=== PATIENT | female | born 1975 | race Caucasian/White ===

== ENCOUNTER 2023-11-05 15:42 | Observation (INO) | payer OTHER ==
[~2023-11-05] VITALS: Ht 170.2 cm; Wt 75.4 kg
[2023-11-05 16:52] LABS: BASOPHILS ABSOLUTE AUTO 0.04 K/mm3 (0.00-0.23); BASOPHILS PERCENT AUTO 1 % (0-2); EOSINOPHILS ABSOLUTE AUTO 0.38 K/mm3 (0.00-0.68); EOSINOPHILS PERCENT AUTO 6 % (0-6); Hematocrit 39.5 % (33.0-51.0); Hemoglobin 12.4 g/dL (11.5-16.0); IMMATURE GRAN ABSOLUTE AUTO 0.01 K/mm3 (0.00-0.10); IMMATURE GRAN PERCENT AUTO 0 % (0-1); LYMPHOCYTES ABSOLUTE AUTO 1.17 K/mm3 (0.84-5.20); LYMPHOCYTES PERCENT AUTO 20 % (21-46); MONOCYTES ABSOLUTE AUTO 0.46 K/mm3 (0.16-1.47); MONOCYTES PERCENT AUTO 8 % (4-13); Mean Corpuscular HGB 28.3 pg (26.0-34.0); Mean Corpuscular HGB Conc 31.4 g/dL (31.5-36.5); Mean Corpuscular Volume 90 fL (80-100); Mean Platelet Volume 8.7 fL (9.1-12.4); NEUTROPHILS ABSOLUTE AUTO 3.93 K/mm3 (1.96-9.15); NEUTROPHILS PERCENT AUTO 66 % (41-73); Platelet Count 248 K/mm3 (150-400); RDW Coefficient Variation 14.2 % (11.7-14.2); RDW Standard Deviation 47.2 fL (35.1-46.3); Red Blood Cell Count 4.38 M/mm3 (3.80-5.20); White Blood Cell Count 5.99 K/mm3 (4.00-11.30)
[2023-11-05 17:19] LABS: Albumin, Blood 3.5 g/dL (3.4-5.0); Bilirubin, Total 0.4 mg/dL (0.1-1.0); Bun/Creatinine Ratio 13.3 (12.0-20.0); Calcium, Blood 8.5 mg/dL (8.5-10.1); Creatinine, Blood 7.08 mg/dL (0.40-1.00); Globulin, Blood 3.6 g/dL (2.2-4.0); Potassium, Blood 5.3 mmol/L (3.5-5.5); Total Protein, Blood 7.1 g/dL (6.4-8.2)
[2023-11-05] MEDS ORDERED: ATOR10 PO (19:53)
[2023-11-05] MEDS ORDERED: ALBU2.5V5 INH (19:53)
[2023-11-05] MEDS ORDERED: CARV3.125 PO (19:54)
[2023-11-05] MEDS ORDERED: ASPI325 PO (19:54)
[2023-11-05] MEDS ORDERED: Amlodipine Bes2.5 MG PO (19:55)
[2023-11-05] MEDS ORDERED: METO5A PO (19:55)
[2023-11-05] MEDS ORDERED: ONDA4 PO (19:55)
[2023-11-05] MEDS ORDERED: ESCI5 PO (19:55)
[2023-11-05] MEDS ORDERED: TORS10 PO (19:56)
[2023-11-05] MEDS ORDERED: INSULIN AS100 UNIT/6 SQ (19:57)
[2023-11-05] MEDS ORDERED: LEVEMIR100 UNIT/1 SQ (20:02)
[2023-11-06] VITALS (20 sets, daily range): BP systolic 139–202; BP diastolic 64–98
[2023-11-06] MEDS ORDERED: AMLO5 PO (01:22)
[2023-11-06] MEDS ORDERED: ATOR40TA PO (01:23)
[2023-11-06] MEDS ORDERED: CARV25 PO (01:24)
[2023-11-06] MEDS ORDERED: ESCI20 PO (01:25)
[2023-11-06] MEDS ORDERED: LEVEMIR100 UNIT/1 SC (01:26)
[2023-11-06] MEDS ORDERED: METO10 PO (01:27)
[2023-11-06] MEDS ORDERED: SOAANZ20 M1 PO (01:28)
[2023-11-06] MEDS ORDERED: ONDA4 PO (01:29)
--- NOTE | 2023-11-06 04:03 | NUR ---
SHIFT SUMMARY/ADMISSION NOTE PATIENT ARRIVED TO UNIT FROM ED AT 00:30. ORIENTED TO UNIT, ROOM, AND CALL LIGHT USE. IS A/Ox4, PLEASANT AFFECT. 10y/old DAUGHTER AT BEDSIDE. PATIENT STATES SMALL CLUSTER OF RAISED RED BUMPS ON ABD AND UPPER BACK ARE ONLY PAINFUL WHEN SCRATCHING. DID NOT FIND ANY BED BUGS IN CLOTHING AT TIME OF ADMIT. NO ACUTE CHANGES NOTED OVERNIGHT. CALL LIGHT IN REACH.
[2023-11-06 05:11] LABS: Albumin, Blood 2.9 g/dL (3.4-5.0); Anion Gap 9 mmol/L (6-16); Blood Urea Nitrogen 97 mg/dL (8-24); Bun/Creatinine Ratio 13.4 (12.0-20.0); CO2, Blood 20 mmol/L (21-32); Calcium, Blood 8.2 mg/dL (8.5-10.1); Chloride, Blood 107 mmol/L (98-108); Creatinine, Blood 7.26 mg/dL (0.40-1.00); Glomerular Filtration Rate 6 (60-); Glucose, Blood 281 mg/dL (70-99); Phosphorus, Blood 7.6 mg/dL (2.5-4.9); Potassium, Blood 5.4 mmol/L (3.5-5.5); Sodium, Blood 136 mmol/L (136-145)
--- NOTE | 2023-11-06 19:36 | NUR ---
shift summary- PT HAD DIALYSIS THIS EVENING. PER MANAGEMENT D/T ISOLATION, PT IS UNABLE TO FEED HER GRAND-DAUGHTER WHO IS IN THE ROOM WITH HER, GUEST MEAL TRAY IS REQUESTED WITH ALL PT MEALS. CALLED DR COLBERT THE PT WAS C/O THE IV IN HER HAND HURTING, SHE HAS NO IV MEDICATION ORDERED, PT REQUESTED THAT THIS RN REMOVE THE IV. PER DR COLBERT, THIS PT CAN HAVE A NO IV ACCESS ORDER LONG DR VASQUEZ IS NOT GOING TO NEED IT FOR HER TREATMENT. CALLED DR VASQUEZ AND HE STATED HE HAS NO PLANS TO USE IV TREATMENT. NO IV ACCESS ORDER PLACED, PAINFUL IV WAS DC'D. REPORT GIVEN TO NIGHT RN. PT IS IN BED, CALL LIGHT IN REACH, C/O HEADACHE AFTER DIALYSIS, IT WAS TOO SOON FOR TYLENOL. PT WAS PROVIDED WITH A HEATING PAD FOR RIGHT SHOULDER PAIN. NO CURRENT S&S OF DISTRESS NOTED.
--- NOTE | 2023-11-06 22:55 | NUR ---
SHIFT SUMMARY PATIENT A/OX4, DENIES PAIN NOR DISCOMFORT AT TIME OF ASSESSMENT AT 19:50. PATIENT EXPRESSED CONCERN OVER HER SITUATION REGARDING APPOINTMENT IN [place] TO EXCHANGE UNDERWRITING CONSULTANT HER NEW TRAVEL TRAILER TOMORROW. STATED THAT WHEN THEY CALL HER THAT IT IS READY TO TAKE DELIVERY ON, SHE HAS ONLY A 1 HOUR WINDOW TO BE THERE TO PICK IT UP. PATIENT INFORMED THIS RN THAT SHE WILL BE LEAVING FIRST THING IN THE MORNING REGARDLESS OF IF PROVIDER AGREES TO DISCHARGE OR NOT. THIS RN ENCOURAGED PATIENT TO WAIT TILL WE CAN DISCUSS THIS WITH PROVIDER. WHILE THIS RN WAS BUSY ADMITTING ANOTHER PATIENT, THIS PATIENT APPEARS TO HAVE LEFT WITHOUT INFORMING ANY STAFF OF HER INTENT ON LEAVING TONIGHT INSTEAD OF WAITING TILL THE MORNING PATIENT HAD PREVIOUSLY STATED. FROZEN FOOD SELECTOR, RAMP ATTENDANT, AND METAL ROOM DENTAL TECHNICIAN PROVIDER AWARE. NO PERSONAL BELONGINGS FOUND IN ROOM.
[2023-11-07 09:43] LABS: HEPATITIS B SURFACE ANTIBODY <3.10 IU/L
[2023-11-07 11:06] LABS: HEPATITIS B SURFACE ANTIBODY <3.10 IU/L
[2023-11-07 11:12] LABS: HBV CORE ANTIBODIES,TOTAL Negative (Negative)
[2023-11-07 12:04] LABS: HBV QNT BY NAAT (IU/ML) Not Detected; HBV QNT BY NAAT (LOG IU/ML) Not Detected; HBV QNT BY NAAT INTERP Not Detected (Not Detected)
[2023-11-08 09:11] LABS: HEPATITIS B SURFACE ANTIBODY <3.10 IU/L
[2023-11-08 09:30] LABS: HEPATITIS B SURFACE ANTIGEN Negative (Negative)
[2023-11-08 11:43] LABS: HEPATITIS A ANTIBODY, IGM Negative (Negative); HEPATITIS B CORE ANTIBODY, IGM Negative (Negative); HEPATITIS B SURFACE ANTIGEN Negative (Negative); HEPATITIS C AB CIA INTERP Negative (Negative); HEPATITIS C ANTIBODY CIA INDEX 0.04 IV
== END 2023-11-06 22:25 | disposition left against medical advice (07) ==
LOC: ER 15:42 → MEDS 15:43
PROVIDERS: Internal Medicine Nephrology; Physician Assistant; Student in an Organized Health Care Education/Training Program; ADMIT Internal Medicine
DX: I13.2 Hypertensive heart and chronic kidney disease with heart failure and with stage 5 chronic kidney disease, or end stage renal disease (principal); E11.22 Type 2 diabetes mellitus with diabetic chronic kidney disease; N18.6 End stage renal disease; I50.9 Heart failure, unspecified; E87.1 Hypo-osmolality and hyponatremia; E87.5 Hyperkalemia; E87.20 Acidosis, unspecified; E83.39 Other disorders of phosphorus metabolism; E88.09 Other disorders of plasma-protein metabolism, not elsewhere classified; D64.9 Anemia, unspecified; I25.2 Old myocardial infarction; E11.319 Type 2 diabetes mellitus with unspecified diabetic retinopathy without macular edema; T14.8XXA Other injury of unspecified body region, initial encounter; W57.XXXA Bitten or stung by nonvenomous insect and other nonvenomous arthropods, initial encounter; I25.10 Atherosclerotic heart disease of native coronary artery without angina pectoris; F32.9 Major depressive disorder, single episode, unspecified; M25.511 Pain in right shoulder; F17.210 Nicotine dependence, cigarettes, uncomplicated; Z53.29 Procedure and treatment not carried out because of patient's decision for other reasons; Z88.5 Allergy status to narcotic agent; Z88.8 Allergy status to other drugs, medicaments and biological substances; Z79.4 Long term (current) use of insulin; Z79.82 Long term (current) use of aspirin; Z79.899 Other long term (current) drug therapy
CPT/HCPCS: 36415; 76770; 80053; 80069; 80074; 82947; 85025; 86704; 87340; 87517; 94760; 99284; A9270; G0378; J1815

== ENCOUNTER 2024-01-21 13:08 | Emergency (ER) | payer OTHER ==
[~2024-01-21] VITALS: Ht 167.6 cm; Wt 70.3 kg
[~2024-01-21 13:08] MED LIST: ALBU2.5V5 INH; AMLO5 PO; ASPI325 PO; ATOR10 PO; ATOR40TA PO; Amlodipine Bes2.5 MG PO; CARV25 PO; CARV3.125 PO; DICY20 PO; ESCI20 PO; ESCI5 PO; INSULIN AS100 UNIT/6 SQ; LEVEMIR100 UNIT/1 SC; LEVEMIR100 UNIT/1 SQ; METO10 PO; METO5A PO; ONDA4 PO; SOAANZ20 M1 PO; TORS10 PO
[2024-01-21 15:05] LABS: BASOPHILS ABSOLUTE AUTO 0.04 K/mm3 (0.00-0.23); BASOPHILS PERCENT AUTO 1 % (0-2); EOSINOPHILS ABSOLUTE AUTO 0.19 K/mm3 (0.00-0.68); EOSINOPHILS PERCENT AUTO 2 % (0-6); Hematocrit 36.1 % (33.0-51.0); Hemoglobin 12.6 g/dL (11.5-16.0); IMMATURE GRAN ABSOLUTE AUTO 0.02 K/mm3 (0.00-0.10); IMMATURE GRAN PERCENT AUTO 0 % (0-1); LYMPHOCYTES ABSOLUTE AUTO 1.65 K/mm3 (0.84-5.20); LYMPHOCYTES PERCENT AUTO 21 % (21-46); MONOCYTES ABSOLUTE AUTO 0.41 K/mm3 (0.16-1.47); MONOCYTES PERCENT AUTO 5 % (4-13); Mean Corpuscular HGB 29.8 pg (26.0-34.0); Mean Corpuscular HGB Conc 34.9 g/dL (31.5-36.5); Mean Corpuscular Volume 85 fL (80-100); Mean Platelet Volume 8.2 fL (9.1-12.4); NEUTROPHILS ABSOLUTE AUTO 5.52 K/mm3 (1.96-9.15); NEUTROPHILS PERCENT AUTO 71 % (41-73); Platelet Count 267 K/mm3 (150-400); RDW Coefficient Variation 15.2 % (11.7-14.2); RDW Standard Deviation 48.2 fL (35.1-46.3); Red Blood Cell Count 4.23 M/mm3 (3.80-5.20); White Blood Cell Count 7.83 K/mm3 (4.00-11.30)
[2024-01-21 15:28] LABS: Albumin, Blood 3.9 g/dL (3.4-5.0); Bilirubin, Total 0.7 mg/dL (0.1-1.0); Bun/Creatinine Ratio 9.1 (12.0-20.0); Calcium, Blood 9.7 mg/dL (8.5-10.1); Creatinine, Blood 6.92 mg/dL (0.40-1.00); Globulin, Blood 3.8 g/dL (2.2-4.0); Potassium, Blood 4.5 mmol/L (3.5-5.5); Total Protein, Blood 7.7 g/dL (6.4-8.2)
[2024-01-21 16:55] VITALS: BP 173/90
[2024-01-21] MEDS ORDERED: Norco 5-325 Ta1 EACH PO (16:55)
== END 2024-01-21 17:00 | disposition home or self-care (01) ==
LOC: ER 13:08
PROVIDERS: Physician Assistant
DX: K80.50 Calculus of bile duct without cholangitis or cholecystitis without obstruction (principal); I50.9 Heart failure, unspecified; E11.319 Type 2 diabetes mellitus with unspecified diabetic retinopathy without macular edema; I25.2 Old myocardial infarction; Z79.4 Long term (current) use of insulin; Z79.82 Long term (current) use of aspirin; Z79.899 Other long term (current) drug therapy; Z88.5 Allergy status to narcotic agent; Z88.8 Allergy status to other drugs, medicaments and biological substances; E11.22 Type 2 diabetes mellitus with diabetic chronic kidney disease; N18.6 End stage renal disease; Z99.2 Dependence on renal dialysis
CPT/HCPCS: 76705; 80053; 83690; 85025; 99284-25

== ENCOUNTER 2024-05-17 05:56 | Day surgery (SDC) | payer MEDICARE, OTHER ==
[2024-05-17] VITALS (25 sets, daily range): BP systolic 167–207; BP diastolic 74–97
[~2024-05-17] VITALS: Ht 165.1 cm; Wt 72.5 kg
[~2024-05-17 05:56] MED LIST changes: +LISI5 PO; +METO5 PO; +Norco 5-325 Ta1 EACH PO; +PRED20 PO; +VITAMIN D2 PO
--- NOTE | 2024-05-17 06:43 | NUR ---
PATIENT REPORTS HX TUBAL LIGATION. NO PRE-OP HCG INDICATED PER HOSPITAL POLICY.
[2024-05-17] MEDS ORDERED: CefOXitin Sodium 2,000 MG in NS 50 ML IV SCH (06:45)
[2024-05-17] MEDS ORDERED: NS 1,000 ML IV SCH (06:45)
[2024-05-17] MEDS ORDERED: Bupivacaine 0.5% HCl 5 MG/ML 30MLVIAL ONE (07:09)
[2024-05-17] MEDS ORDERED: Lidocaine HCl 2% 20 ML MDV ONE (07:26)
[2024-05-17] MEDS ORDERED: propofoL 20 ML IV ONE (07:26)
[2024-05-17] MEDS ORDERED: FentaNYL Citrate 50 MCG/ML 2 ML Injection ONE ×3 (07:26→08:45)
[2024-05-17] MEDS ORDERED: Dexamethasone Sod Phos 10 MG/ML 1ML VIAL ONE (07:38)
[2024-05-17] MEDS ORDERED: Neostigmine Methylsulfate 5MG/5ML SYR ONE (08:26)
[2024-05-17] MEDS ORDERED: Glycopyrrolate 0.2 MG/ML 5ML VIAL ONE (08:26)
[2024-05-17] MEDS ORDERED: Ondansetron HCl 2 MG / ML 2ML Vial ONE ×2 (08:26→09:37)
[2024-05-17] MEDS ORDERED: Metoclopramide HCl 5MG / ML 2ML Vial ONE (09:14)
[2024-05-17] MEDS ORDERED: OxyCODONE 5 mg/Acetamin 325 mg TABLET PO PRN (09:25)
--- NOTE | 2024-05-17 09:55 | NUR ---
REPORT RECEIVED FROM OMAR MOSLEY. PT ON 2L SUPPLEMENTAL O2 VIA NC. PT A&OX4. PT ABLE TO REPOSITION SELF IN BED. PT HAS 4 SURGICAL SITES COVERED WITH GAUZE AND OCCLUSIVE DRESSING THAT ARE C/D/I WITHOUT DRAINAGE, REDNESS, OR SWELLING. PT REPORTS DISCOMFORT TO HER ABDOMEN, DENIES NAUSEA OR OTHER DISCOMFORTS.
[2024-05-17] MEDS ORDERED: HydrALAZINE HCl 20 MG / ML 1ML Vial IV ONE (11:10)
--- NOTE | 2024-05-17 12:33 | NUR ---
1100 DR GRANADOS AT BEDSIDE TO CONSULT FOR PT HTN. DR GRANADOS GAVE ORDERS FOR 10MG IV HYDRALAZINE. DR GRANADOS SAID MAY D/C HOME IF A SYSTOLIC BP OF 180 AND O2 SATURATIONS >92% ON RA. 1220 DR GRANADOS AT BEDSIDE TO ASSESS PT. PT DENIES SPARKS, BLURRY VISION, CHEST PAIN, DIZZINESS. PT BP 182/85, 93% ON RA, HR 73BPM. PER DR GRANADOS OKAY TO D/C PT HOME. PT VERBALIZES READINESS TO GO HOME AND STATES THAT SHE FEELS OKAY TO GO HOME. Patient up to Ambulate independently. Gait steady. Discharge instructions reviewed with patient. Patient verbalizes understanding. Copy given to patient to take home. Dressing to procedure site clean, dry, intact with no visible drainage, swelling, erythema or bruising noted. Patient States Post-Procedure ride home has been arranged. Discharged via wheelchair to private car for ride home. PT BELONGINGS RETURNED TO PT.
== END 2024-05-17 12:25 | disposition home or self-care (01) ==
LOC: ORSCMMR 05:56
PROVIDERS: Surgery
PROC: BF031ZZ Plain Radiography of Gallbladder and Bile Ducts using Low Osmolar Contrast (ICD-10-PCS; principal; 2024-05-17 07:30)
PROC: 0FT44ZZ Resection of Gallbladder, Percutaneous Endoscopic Approach (ICD-10-PCS; principal; 2024-05-17 07:30)
DX: K80.10 Calculus of gallbladder with chronic cholecystitis without obstruction (principal); I25.10 Atherosclerotic heart disease of native coronary artery without angina pectoris; J44.9 Chronic obstructive pulmonary disease, unspecified; N18.6 End stage renal disease; Z99.2 Dependence on renal dialysis; E10.22 Type 1 diabetes mellitus with diabetic chronic kidney disease; I12.0 Hypertensive chronic kidney disease with stage 5 chronic kidney disease or end stage renal disease; Z79.4 Long term (current) use of insulin; Z79.899 Other long term (current) drug therapy
CPT/HCPCS: 74300; 82435; 82947; 84132; 84295; 88304; C1894; J0360; J0694; J1100; J2405; J2704; J2710; J2765; J3010; J7030

== ENCOUNTER 2024-06-21 12:20 | Emergency (ER) | payer MEDICARE, OTHER ==
[~2024-06-21] VITALS: Ht 165.1 cm; Wt 65.8 kg
[2024-06-21 12:24] VITALS: BP 182/103
[2024-06-21 12:45] LABS: BASOPHILS ABSOLUTE AUTO 0.05 K/mm3 (0.00-0.23); BASOPHILS PERCENT AUTO 1 % (0-2); EOSINOPHILS PERCENT AUTO 3 % (0-6); Hematocrit 34.5 % (33.0-51.0); Hemoglobin 11.7 g/dL (11.5-16.0); IMMATURE GRAN ABSOLUTE AUTO 0.03 K/mm3 (0.00-0.10); IMMATURE GRAN PERCENT AUTO 0 % (0-1); LYMPHOCYTES ABSOLUTE AUTO 1.25 K/mm3 (0.84-5.20); LYMPHOCYTES PERCENT AUTO 15 % (21-46); MONOCYTES ABSOLUTE AUTO 0.65 K/mm3 (0.16-1.47); MONOCYTES PERCENT AUTO 8 % (4-13); Mean Corpuscular HGB 31.6 pg (26.0-34.0); Mean Corpuscular HGB Conc 33.9 g/dL (31.5-36.5); Mean Corpuscular Volume 93 fL (80-100); Mean Platelet Volume 8.4 fL (9.1-12.4); NEUTROPHILS ABSOLUTE AUTO 5.96 K/mm3 (1.96-9.15); NEUTROPHILS PERCENT AUTO 73 % (41-73); Platelet Count 217 K/mm3 (150-400); RDW Coefficient Variation 13.2 % (11.7-14.2); RDW Standard Deviation 44.7 fL (35.1-46.3); White Blood Cell Count 8.14 K/mm3 (4.00-11.30)
[2024-06-21 13:08] LABS: Albumin/Globulin Ratio 1.1 (0.8-1.8); Bilirubin, Total 0.6 mg/dL (0.1-1.0); Bun/Creatinine Ratio 8.6 (12.0-20.0); Calcium, Blood 9.3 mg/dL (8.5-10.1); Creatinine, Blood 6.76 mg/dL (0.40-1.00); Globulin, Blood 3.5 g/dL (2.2-4.0); Potassium, Blood 4.9 mmol/L (3.5-5.5); Total Protein, Blood 7.5 g/dL (6.4-8.2)
[2024-06-21] MEDS ORDERED: Ampicillin Sod 1,000 MG in NS 50 ML IV ONE (13:30)
[2024-06-21] MEDS ORDERED: Acetaminophen 325 MG TABLET PO PRN (14:15)
[2024-06-21] MEDS ORDERED: Ondansetron HCl 2 MG / ML 2ML Vial IV PRN (14:20)
[2024-06-21] MEDS ORDERED: Metoclopramide HCl 5MG / ML 2ML Vial IV PRN (14:20)
[2024-06-21] MEDS ORDERED: HydrALAZINE HCl 20 MG / ML 1ML Vial IV PRN (14:20)
[2024-06-21] MEDS ORDERED: CefTRIAXone Sodium 2,000 MG in NS 100 ML IV SCH (15:00)
[2024-06-21] MEDS ORDERED: Nicotine 21 MG PATCH TOP ONE (15:45)
[2024-06-21] MEDS ORDERED: Insulin Regular 100 UNIT/ML 10ML Vial SC SCH (16:30)
[2024-06-21] MEDS ORDERED: Carvedilol 6.25 MG Tab PO SCH (21:00)
[2024-06-21] MEDS ORDERED: Lactobacil 2-S.Thermo-Bifido 1 1 Cap PO SCH (21:00)
[2024-06-22] MEDS ORDERED: Heparin Sodium,Porcine 5,000 UNIT/0.5 ML SDV SC SCH (09:00)
[2024-06-22] MEDS ORDERED: Nicotine 14 MG PATCH TOP SCH (09:00)
[2024-06-22] MEDS ORDERED: Atorvastatin 40 MG Tab PO SCH (09:00)
[2024-06-22] MEDS ORDERED: Insulin Glargine-Yfgn 100 Unit/mL 3 ML SYR SC SCH (09:00)
== END 2024-06-21 15:45 | disposition left against medical advice (07) ==
LOC: ER 12:20
PROVIDERS: Physician Assistant
DX: R78.81 Bacteremia (principal); B96.4 Proteus (mirabilis) (morganii) as the cause of diseases classified elsewhere; E11.22 Type 2 diabetes mellitus with diabetic chronic kidney disease; N18.9 Chronic kidney disease, unspecified; I50.9 Heart failure, unspecified; E11.43 Type 2 diabetes mellitus with diabetic autonomic (poly)neuropathy; E11.319 Type 2 diabetes mellitus with unspecified diabetic retinopathy without macular edema; Z79.4 Long term (current) use of insulin; Z88.5 Allergy status to narcotic agent; Z88.8 Allergy status to other drugs, medicaments and biological substances
CPT/HCPCS: 80053; 85025; A9270; J0290; J0696; J1815

== ENCOUNTER 2024-08-21 02:03 | Day surgery (SDC) | payer MEDICARE, OTHER ==
[2024-08-21] VITALS (7 sets, daily range): BP systolic 139–197; BP diastolic 68–86
[2024-08-21] MEDS ORDERED: NS 250 ML IV SCH (07:15)
--- NOTE | 2024-08-21 15:29 | NUR ---
PATIENT BP AT 15 MIN INTO 2ND UNIT IS 194/84. LUNGS DIMINISHED. RR IS 20. PATIENT HAS CARDIAC AND END STAGE RENAL DISEASE. DR VASQUEZ NOTIFIED. IV LASIX TO BE GIVEN. IF HER BP CONTINUES TO BE HIGH AFTER BLOOD TRANSFUSION IS COMPLETE, DR VASQUEZ ADVISED PATIENT TO GO TO THE ER FOR EVALUATION
[2024-08-21] MEDS ORDERED: Furosemide 10 MG/ML 4ML Vial IV SCH (15:30)
--- NOTE | 2024-08-21 17:09 | NUR ---
PATIENT REFUSED EVALUATION AT THE ER. BP REMAINED ELEVATED DESPITE LASIX. SHE APPEARED NO NO DISTRESS. DENIED ANY COMPLAINTS OR SYMPTOMS OF DISTRESS. WHEELCHAIR OFFERED AND PATIENT DROVE HER SELF HOME.
== END 2024-08-21 17:03 | disposition home or self-care (01) ==
LOC: ATC 02:03
DX: D64.9 Anemia, unspecified (principal); I13.2 Hypertensive heart and chronic kidney disease with heart failure and with stage 5 chronic kidney disease, or end stage renal disease; E11.22 Type 2 diabetes mellitus with diabetic chronic kidney disease; I50.9 Heart failure, unspecified; N18.6 End stage renal disease; I25.2 Old myocardial infarction; F17.210 Nicotine dependence, cigarettes, uncomplicated; Z88.5 Allergy status to narcotic agent; Z88.8 Allergy status to other drugs, medicaments and biological substances; Z79.4 Long term (current) use of insulin; Z79.899 Other long term (current) drug therapy
CPT/HCPCS: 36415; 36430; 86850; 86900; 86901; 86920; 96374; J1940; J7050; P9016

== ENCOUNTER 2024-09-19 13:10 | Day surgery (SDC) | payer MEDICARE, OTHER ==
[~2024-09-19 13:10] MED LIST changes: +NS 250 ML IV SCH
[2024-09-19 13:27] VITALS: BP 169/78
[2024-09-19 13:48] VITALS: BP 162/71
[2024-09-19 14:53] VITALS: BP 177/84
[2024-09-19 15:20] VITALS: BP 177/75
== END 2024-09-19 15:25 | disposition home or self-care (01) ==
LOC: ATC 13:10
DX: D64.9 Anemia, unspecified (principal); N18.6 End stage renal disease
CPT/HCPCS: 36415; 36430; 86850; 86900; 86901; 86923; J7050; P9016

== ENCOUNTER 2024-10-16 01:47 | Day surgery (SDC) | payer MEDICARE, OTHER ==
[~2024-10-16 01:47] MED LIST changes: -NS 250 ML IV SCH
[2024-10-16] MEDS ORDERED: NS 250 ML IV SCH (07:15)
--- NOTE | 2024-10-16 09:52 | NUR ---
PT CALLED CARY AT THE HOSPITAL SWITCH[facility]ARD AND SAID THAT SHE WOULD NOT BE COMING IN TODAY. BLOOD BANK STAFF NOTIFIED.
== END 2024-10-16 23:00 | disposition home or self-care (01) ==
LOC: ATC 01:47
DX: D64.9 Anemia, unspecified (principal); N18.6 End stage renal disease
CPT/HCPCS: 86850; 86900; 86901; 86923

== ENCOUNTER 2024-10-28 02:32 | Day surgery (SDC) | payer MEDICARE, OTHER ==
[2024-10-28] MEDS ORDERED: NS 250 ML IV SCH (07:45)
[2024-10-28 13:35] VITALS: BP 160/77
--- NOTE | 2024-10-28 13:44 | NUR ---
LUNGS PRIOR TO TRANSFUSION ARE DIMINSHED WITH FAINT EXP WHEEZE IN ANTERIOR UPPER LOBES BILAT.
[2024-10-28 13:59] VITALS: BP 158/72
[2024-10-28 15:05] VITALS: BP 176/88
[2024-10-28 15:35] VITALS: BP 171/81
--- NOTE | 2024-10-28 15:40 | NUR ---
Pt reports that she does not want to sit and get another unit of PRHCs today. Pt reports she has anxiety and that she often times cannot sit through her whole dialysis treatment session due to the anxiety as well. Pt received one unit of PRBCs today.
== END 2024-10-28 15:40 | disposition home or self-care (01) ==
LOC: ATC 02:32
DX: D64.9 Anemia, unspecified (principal); N18.6 End stage renal disease
CPT/HCPCS: 36415; 36430; J7050; P9016

== ENCOUNTER 2025-03-21 17:12 | Emergency (ER) | payer MEDICARE, OTHER ==
[~2025-03-21] VITALS: Ht 167.6 cm; Wt 84.0 kg
[2025-03-21 17:34] VITALS: BP 163/77
[2025-03-21 18:35] LABS: BASOPHILS ABSOLUTE AUTO 0.02 K/mm3 (0.00-0.23); BASOPHILS PERCENT AUTO 0 % (0-2); EOSINOPHILS PERCENT AUTO 2 % (0-6); IMMATURE GRAN ABSOLUTE AUTO 0.02 K/mm3 (0.00-0.10); IMMATURE GRAN PERCENT AUTO 0 % (0-1); LYMPHOCYTES ABSOLUTE AUTO 0.49 K/mm3 (0.84-5.20); LYMPHOCYTES PERCENT AUTO 9 % (21-46); MONOCYTES ABSOLUTE AUTO 0.49 K/mm3 (0.16-1.47); MONOCYTES PERCENT AUTO 9 % (4-13); Mean Corpuscular HGB 28.4 pg (26.0-34.0); Mean Corpuscular HGB Conc 30.8 g/dL (31.5-36.5); Mean Corpuscular Volume 92 fL (80-100); Mean Platelet Volume 8.9 fL (9.1-12.4); NEUTROPHILS ABSOLUTE AUTO 4.57 K/mm3 (1.96-9.15); NEUTROPHILS PERCENT AUTO 80 % (41-73); Platelet Count 150 K/mm3 (150-400); RDW Standard Deviation 60.9 fL (35.1-46.3); Red Blood Cell Count 4.22 M/mm3 (3.80-5.20); White Blood Cell Count 5.69 K/mm3 (4.00-11.30)
[2025-03-21 19:18] LABS: Magnesium, Blood 2.4 mg/dL (1.6-2.4)
[2025-03-21 19:19] LABS: Albumin, Blood 2.7 g/dL (3.4-5.0); Albumin/Globulin Ratio 0.8 (0.8-1.8); Bilirubin, Total 0.6 mg/dL (0.1-1.0); Bun/Creatinine Ratio 13.5 (12.0-20.0); Calcium, Blood 8.3 mg/dL (8.5-10.1); Creatinine, Blood 5.39 mg/dL (0.40-1.00); Globulin, Blood 3.6 g/dL (2.2-4.0); Phosphorus, Blood 5.6 mg/dL (2.5-4.9); Potassium, Blood 4.3 mmol/L (3.5-5.5); Total Protein, Blood 6.3 g/dL (6.4-8.2)
== END 2025-03-21 19:00 | disposition home or self-care (01) ==
LOC: ER 17:12
PROVIDERS: Student in an Organized Health Care Education/Training Program
DX: F41.9 Anxiety disorder, unspecified (principal); R06.02 Shortness of breath; E11.22 Type 2 diabetes mellitus with diabetic chronic kidney disease; I25.2 Old myocardial infarction; I50.9 Heart failure, unspecified; N18.6 End stage renal disease; Z88.5 Allergy status to narcotic agent; Z88.8 Allergy status to other drugs, medicaments and biological substances; Z79.899 Other long term (current) drug therapy; Z79.4 Long term (current) use of insulin; Z95.1 Presence of aortocoronary bypass graft; Z99.2 Dependence on renal dialysis; Z53.21 Procedure and treatment not carried out due to patient leaving prior to being seen by health care provider
CPT/HCPCS: 71045; 80053; 83690; 83735; 83880; 84100; 85025; 93005; 93010; 99284-25

== ENCOUNTER 2025-03-28 15:58 | Emergency (ER) | payer MEDICARE, OTHER ==
[~2025-03-28] VITALS: Ht 165.1 cm; Wt 81.7 kg
[2025-03-28] MEDS ORDERED: FentaNYL Citrate 50 MCG/ML 2 ML Injection IV ONE (19:20)
[2025-03-28 20:35] VITALS: BP 160/81
== END 2025-03-28 20:35 | disposition home or self-care (01) ==
LOC: ER 15:58
DX: M25.552 Pain in left hip (principal); E11.22 Type 2 diabetes mellitus with diabetic chronic kidney disease; N18.9 Chronic kidney disease, unspecified; I50.9 Heart failure, unspecified; I25.2 Old myocardial infarction; Z95.1 Presence of aortocoronary bypass graft; W18.11XA Fall from or off toilet without subsequent striking against object, initial encounter; Z88.5 Allergy status to narcotic agent; Z88.8 Allergy status to other drugs, medicaments and biological substances; Z79.899 Other long term (current) drug therapy; Z79.4 Long term (current) use of insulin
CPT/HCPCS: 72192; 73502; 96374; 99284-25; J3010

== ENCOUNTER 2025-09-05 08:39 | Emergency (ER) | payer MEDICARE, OTHER ==
[~2025-09-05] VITALS: Ht 162.6 cm; Wt 68.0 kg
[~2025-09-05 08:39] MED LIST changes: +ELIQUIS5 M2 PO; +INSULANPEN SC; +SERT25 PO
[2025-09-05] MEDS ORDERED: FentaNYL Citrate 50 MCG/ML 2 ML Injection IV ONE (11:00)
[2025-09-05] MEDS ORDERED: Morphine Sulfate 4 MG/1 ML Injection IM ONE (11:15)
[2025-09-05 11:20] VITALS: BP 174/92
== END 2025-09-05 11:38 | disposition home or self-care (01) ==
LOC: ER 08:39
DX: S80.01XA Contusion of right knee, initial encounter (principal); S00.83XA Contusion of other part of head, initial encounter; E11.22 Type 2 diabetes mellitus with diabetic chronic kidney disease; N18.9 Chronic kidney disease, unspecified; E11.319 Type 2 diabetes mellitus with unspecified diabetic retinopathy without macular edema; E11.43 Type 2 diabetes mellitus with diabetic autonomic (poly)neuropathy; K31.84 Gastroparesis; I25.2 Old myocardial infarction; W01.0XXA Fall on same level from slipping, tripping and stumbling without subsequent striking against object, initial encounter; Z79.899 Other long term (current) drug therapy; Z79.4 Long term (current) use of insulin; Z88.5 Allergy status to narcotic agent; Z88.8 Allergy status to other drugs, medicaments and biological substances
CPT/HCPCS: 70450; 70486; 71046; 72125; 73562-RT; 73590; 90471; 90715; 96372; 96372-59; 99284-25; J2270

== ENCOUNTER 2025-11-18 10:12 | Inpatient (IN) | payer MEDICARE, OTHER ==
[2025-11-18] VITALS (12 sets, daily range): BP systolic 136–157; BP diastolic 70–90
[~2025-11-18] VITALS: Ht 165.1 cm; Wt 80.9 kg
[2025-11-18 10:49] LABS: BASOPHILS ABSOLUTE AUTO 0.04 K/mm3 (0.00-0.23); BASOPHILS PERCENT AUTO 0 % (0-2); EOSINOPHILS ABSOLUTE AUTO 0.08 K/mm3 (0.00-0.68); EOSINOPHILS PERCENT AUTO 1 % (0-6); Hematocrit 31.7 % (33.0-51.0); Hemoglobin 9.4 g/dL (11.5-16.0); IMMATURE GRAN ABSOLUTE AUTO 0.09 K/mm3 (0.00-0.10); IMMATURE GRAN PERCENT AUTO 1 % (0-1); LYMPHOCYTES ABSOLUTE AUTO 0.59 K/mm3 (0.84-5.20); LYMPHOCYTES PERCENT AUTO 4 % (21-46); MONOCYTES ABSOLUTE AUTO 1.01 K/mm3 (0.16-1.47); MONOCYTES PERCENT AUTO 7 % (4-13); Mean Corpuscular HGB Conc 29.7 g/dL (31.5-36.5); Mean Corpuscular Volume 99 fL (80-100); NEUTROPHILS ABSOLUTE AUTO 13.25 K/mm3 (1.96-9.15); NEUTROPHILS PERCENT AUTO 88 % (41-73); NRBC ABSOLUTE 0.00 K/mm3 (0.00-0.02); NRBC Auto 0.0 /100 WBC (0.0-0.2); Platelet Count 262 K/mm3 (150-400); RDW Coefficient Variation 16.2 % (11.7-14.2); RDW Standard Deviation 58.4 fL (35.1-46.3)
[2025-11-18 11:09] LABS: Alanine Aminotransfer (ALT/SGP 37.0 U/L (12-78); Albumin, Blood 2.8 g/dL (3.4-5.0); Albumin/Globulin Ratio 0.7 (0.8-1.8); Anion Gap 10.0 mmol/L (3-11); Aspartate Aminotrans (AST/SGOT 40.0 U/L (12-37); Bilirubin, Total 0.5 mg/dL (0.1-1.0); Blood Urea Nitrogen 80.0 mg/dL (8-24); CO2, Blood 31.0 mmol/L (21-32); Calcium, Blood 9.3 mg/dL (8.5-10.1); Chloride, Blood 99.0 mmol/L (98-108); Creatinine, Blood 4.99 mg/dL (0.40-1.00); Globulin, Blood 4.3 g/dL (2.2-4.0); Glucose, Blood 44.0 mg/dL (70-99); Potassium, Blood 5.2 mmol/L (3.5-5.5); Sodium, Blood 135.0 mmol/L (136-145); Total Protein, Blood 7.1 g/dL (6.4-8.2)
[2025-11-18 11:46] LABS: Source, Urine Straight Cath
[2025-11-18 12:03] LABS: Bilirubin, Urine Neg (Neg); Color, Urine Yellow (P-Yellow); Glucose Qualitative, Urine Neg (Neg); Ketones, Urine Neg (Neg); Leukocyte Esterase, Urine Neg (Neg); Protein, Urine 3+ (Neg); Specific Gravity, Urine 1.010 (1.003-1.022); Urobilinogen, Urine NORM (Normal)
[2025-11-18 12:11] LABS: Red Blood Cells, Urine 0-2 /hpf (0-2); White Blood Cells, Urine 0-2 /hpf (0-5)
[2025-11-18] MEDS ORDERED: AMOX-CLAV 500-1 EAC5 PO (12:30)
[2025-11-18] MEDS ORDERED: NOVOLOG FL100 UNIT/3 (12:30)
[2025-11-18] MEDS ORDERED: AMLODIPINE BESYL5 MG PO (12:30)
[2025-11-18] MEDS ORDERED: BUPROPION XL150 M1 PO (12:31)
[2025-11-18] MEDS ORDERED: ERGO50000 PO (12:32)
[2025-11-18] MEDS ORDERED: ZOLOFT50 MG PO (12:33)
[2025-11-18] MEDS ORDERED: FURO80 PO (12:33)
[2025-11-18] MEDS ORDERED: METO10 PO (12:34)
[2025-11-18] MEDS ORDERED: Calcium Acetat667 MG PO (12:34)
[2025-11-18] MEDS ORDERED: ALBU90OI INH (12:35)
[2025-11-18] MEDS ORDERED: Dilaudid 2 mg Ta2 MG (12:35)
[2025-11-18] MEDS ORDERED: ONDA4ODT MM (12:36)
[2025-11-18] MEDS ORDERED: CONSTULOSE10 GM/155 PO (12:36)
[2025-11-18] MEDS ORDERED: CeFAZolin Sodium 1,000 MG in NS 100 ML IV ONE (12:50)
[2025-11-18] MEDS ORDERED: FLU VACC TS2025-26(6MOS UP)/PF 45 MCG/0.5 ML SYRINGE IM ONE (13:15)
[2025-11-18] MEDS ORDERED: Vancomycin (Pharmacy Consult) IV SCH (13:15)
[2025-11-18] MEDS ORDERED: Ondansetron HCl 2 MG / ML 2ML Vial IV ONE (13:55)
--- NOTE | 2025-11-18 14:36 | NUR ---
RECEIVED REPORT FROM SUPERVISOR TUNNEL HEADING. TOLD IN REPORT THAT PATIENT HAD A BOWEL MOVEMENT AND IT WAS BLACK AND TARRY; NOTE NOTIFIED. CALLED DR. CARRASCO; NOTIFIED HIM OF THE ABOVE. ALSO NOTIFIED DR. CARRASCO THAT PATIENT DOES HAVE A ABD WOUND AND THAT THE PATIENT WILL NEED WOUND CARE ORDERS. AWAITING FOR THE PATIENT TO GET TO THE UNIT FROM THE ER.
--- NOTE | 2025-11-18 16:15 | NUR ---
ADMISSION NOTE: PATIENT CAME UP TO THE UNIT VIA GURNEY. TRANSFERRED PATIENT ONTO BED. PATIENT VITALS OBTAINED, SETTLED IN ROOM, BLOOD SUGAR 68; JUICE AND CHEESE AND HARD BOILED EGG PROVIDED; PATIENT VOMITED AFTER TAKING BITE OF EGG. REPEAT BLOOD SUGAR APPROX 30 MIN LATER WAS 80. JERSONTENT FELT BETTER AFTER VOMITING; STATING THAT THE EGG MADE HER SICK. PATIENT HAD A LARGE FORMED BOWEL MOVEMENT; STOOL DARK BROWN NOT BLACK OR TARRY. PATIENT DOES HAVE A WOUND ON HER LOWER CENTRAL ABD UNDER HER PANNUS FOLD. UNABLE TO TAKE A PHOTO AT THIS TIME DUE TO NOT HAVING ACCESS TO A WORKING CAMERA. SHE DOES HAVE A PERMACATH IS HER R UPPER CHEST; C/D/I
--- NOTE | 2025-11-18 16:18 | NUR ---
PATIENT BEING TAKEN DOWN TO DIALYSIS
[2025-11-18] MEDS ORDERED: Darbepoetin (Pharmacy Consult) SC SCH (16:45)
[2025-11-18] MEDS ORDERED: Calcium Acetate 667 MG Gel Cap PO SCH ×2 (17:30)
[2025-11-18] MEDS ORDERED: CefTRIAXone Sodium 1,000 MG in NS 100 ML IV SCH (18:00)
[2025-11-18] MEDS ORDERED: NS 250 ML IV PRN (18:10)
[2025-11-18] MEDS ORDERED: Heparin Sodium,Porcine 5,000 UNIT/0.5 ML SDV SC SCH (21:00)
[2025-11-18] MEDS ORDERED: Darbepoetin Alfa In Albumn Sol 40 MCG/0.4 ML SC SCH (22:00)
[2025-11-19] VITALS (17 sets, daily range): BP systolic 122–153; BP diastolic 58–86
--- NOTE | 2025-11-19 03:08 | NUR ---
SHIFT SUMMARY PT ALERT AND ORIENTED. WITHDRAWN, BUT COOPERATIVE WITH CARES. SHE IS A 1-2 PERSON ASSIST TO THE BATHROOM WITH FWW. R HAND PIV/SALINE LOCKED. ON ROOM AIR. DIALISYS WAS COMPLETED ON 11/18. R CHEST PERMACATH, NO ACCESSED THIS SHIFT. 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 LOWER ABDOMEN/PANNUS WOUND WITH PURULENT DISCHARGE AND ODOR. COVERED WITH CLEAN MEPILEX. WOUND DEBRIDEMENT WAS PREFORMED IN THE ER, AND LIKELY ADDITIONAL DEBRIDEMENT WILL BE NEEDED. GENERAl SURGERY IS TO CONSULT WITH THE PT IN THE AM. SHE HAS NOT HAD A BM ON SHIFT. SHE IS CONTINENT, USES THE BATHROOM APPROPRIATELY. ON A RENAL DIET WITH Q6 CBG CHECKS. BLOOD SUGARS WNL THIS SHIFT. VSS. BED IN LOWEST POSITION. CALL LIGHT IN REACH.
[2025-11-19 05:29] LABS: BASOPHILS ABSOLUTE AUTO 0.02 K/mm3 (0.00-0.23); BASOPHILS PERCENT AUTO 0 % (0-2); EOSINOPHILS ABSOLUTE AUTO 0.07 K/mm3 (0.00-0.68); EOSINOPHILS PERCENT AUTO 1 % (0-6); Hematocrit 25.6 % (33.0-51.0); Hemoglobin 7.8 g/dL (11.5-16.0); IMMATURE GRAN ABSOLUTE AUTO 0.05 K/mm3 (0.00-0.10); IMMATURE GRAN PERCENT AUTO 1 % (0-1); LYMPHOCYTES ABSOLUTE AUTO 0.78 K/mm3 (0.84-5.20); LYMPHOCYTES PERCENT AUTO 10 % (21-46); MONOCYTES ABSOLUTE AUTO 0.57 K/mm3 (0.16-1.47); MONOCYTES PERCENT AUTO 7 % (4-13); Mean Corpuscular HGB Conc 30.5 g/dL (31.5-36.5); Mean Corpuscular Volume 98 fL (80-100); NEUTROPHILS ABSOLUTE AUTO 6.64 K/mm3 (1.96-9.15); NEUTROPHILS PERCENT AUTO 82 % (41-73); NRBC ABSOLUTE 0.00 K/mm3 (0.00-0.02); NRBC Auto 0.0 /100 WBC (0.0-0.2); Platelet Count 219 K/mm3 (150-400); RDW Coefficient Variation 16.6 % (11.7-14.2); RDW Standard Deviation 59.5 fL (35.1-46.3)
[2025-11-19 05:51] LABS: Alanine Aminotransfer (ALT/SGP 31 U/L (12-78); Albumin, Blood 2.5 g/dL (3.4-5.0); Albumin/Globulin Ratio 0.7 (0.8-1.8); Anion Gap 9 mmol/L (3-11); Aspartate Aminotrans (AST/SGOT 32 U/L (12-37); Bilirubin, Total 0.5 mg/dL (0.1-1.0); Blood Urea Nitrogen 59 mg/dL (8-24); CO2, Blood 31 mmol/L (21-32); Calcium, Blood 8.7 mg/dL (8.5-10.1); Chloride, Blood 100 mmol/L (98-108); Creatinine, Blood 4.45 mg/dL (0.40-1.00); Globulin, Blood 3.6 g/dL (2.2-4.0); Glucose, Blood 115 mg/dL (70-99); Magnesium, Blood 2.4 mg/dL (1.6-2.4); Phosphorus, Blood 5.1 mg/dL (2.5-4.9); Potassium, Blood 5.3 mmol/L (3.5-5.5); Sodium, Blood 135 mmol/L (136-145); Total Protein, Blood 6.1 g/dL (6.4-8.2); Vancomycin, Random 14.9 ug/mL
[2025-11-19] MEDS ORDERED: Vitamin B Cmplx/Vit C/Folic Ac 1 Tab PO SCH (09:00)
[2025-11-19] MEDS ORDERED: Enoxaparin 40 MG/0.4 ML SYR SC SCH (09:00)
--- NOTE | 2025-11-19 18:02 | NUR ---
SHIFT SUMMARY: A&OX4. PLEASANT AND COOPERATIVE WITH CARE. PT RECIECED DIALYSIS TREATMENT WITH A REPORTED 3L OF FLUID OFF. BLOOD SUGARS HAVE REMAINED >80 THROUGHOUT SHIFT. GEN SURGERY CONSULT PLACED AND PT WAS EXAMINED. PLAN TO DRESS WOUND PER ORDERS WITHOUT SURGERY. PT OUT OF BED TO CHAIR MULTIPLE TIMES WITH A 1P ASSIST. NO ACUTE EVENTS/CHANGES. BREATHING EQUAL AND NONLABORED. SITTING AT EOB FOR DINNER AT THIS TIME. CALL LT WITHIN REACH. REPORT TO ONCOMING NURSE.
[2025-11-20] VITALS (11 sets, daily range): BP systolic 117–161; BP diastolic 52–84
[2025-11-20 05:55] LABS: Hematocrit 26.3 % (33.0-51.0); Hemoglobin 7.8 g/dL (11.5-16.0)
--- NOTE | 2025-11-20 05:57 | NUR ---
SHIFT SUMMARY POWER GLIDE INSERTED AT START OF SHIFT BY DAY BOULEVARD GLASSWARE REPLACER. IV ANTIBIOTICS INFUSED PER ORDER. PT MEDICATED FOR PAIN X1 WITH OXYCODONE PER EMAR. DRESSING CHANGED PER ORDER THIS EARLY AM. WOUND DRAINING SMALL AMOUNT SEROSANG/PURULENT DRAINAGE. PT OOB TO BATHROOM WITH FWW AND 1P ASSIST. PT MAINTAINED ON 1 LITER FLUID RESTRICTION. PT IS WITHDRAWN WITH FLAT AFFECT, COOPERATIVE WITH ALL CARE. SLEPT INTERMITTENTLY DURING THE NIGHT.
[2025-11-20 06:22] LABS: Albumin, Blood 2.6 g/dL (3.4-5.0); Anion Gap 8 mmol/L (3-11); Blood Urea Nitrogen 50 mg/dL (8-24); CO2, Blood 32 mmol/L (21-32); Calcium, Blood 8.7 mg/dL (8.5-10.1); Chloride, Blood 99 mmol/L (98-108); Creatinine, Blood 3.70 mg/dL (0.40-1.00); Glucose, Blood 223 mg/dL (70-99); Magnesium, Blood 2.4 mg/dL (1.6-2.4); Phosphorus, Blood 4.3 mg/dL (2.5-4.9); Potassium, Blood 4.9 mmol/L (3.5-5.5); Sodium, Blood 134 mmol/L (136-145); Vancomycin, Random 25.5 ug/mL
[2025-11-20] MEDS ORDERED: Insulin Glargine-Yfgn 100 Unit/mL 3 ML SYR SC SCH (10:00)
--- NOTE | 2025-11-20 17:37 | NUR ---
SHIFT SUMMARY: A&OX4, PLEASANT AND COOPERATIVE WITH CARE. PT HAS A FLAT AND WITHDRAWN AFFECT. DIALYSIS WAS SCHEDULED EARLY THIS AFTERNOON, BUT PT REPORTED FEELING UNWELL RESULTING IN THE DECISION TO CANCEL THE TREATMENT. ABDOMINAL XRAY WAS THEN ORDERED. BLOOD SUGARS WERE CHECKED WITHOUT ANY HYPOGLYCEMIC EPISODES. INSULIN WAS ADMINISTERED PER JAN. PT AMBULATING INDEPENDENTLY IN ROOM AND HALLWAY WITH FWW. ABDOMINAL WOUND DRESSING CHANGED PER ORDER. SITTING IN CHAIR FOR DINNER. CALL LT WITHIN REACH.
[2025-11-21] VITALS (12 sets, daily range): BP systolic 124–153; BP diastolic 36–81
[2025-11-21 05:30] LABS: BASOPHILS ABSOLUTE AUTO 0.02 K/mm3 (0.00-0.23); BASOPHILS PERCENT AUTO 0 % (0-2); EOSINOPHILS ABSOLUTE AUTO 0.06 K/mm3 (0.00-0.68); EOSINOPHILS PERCENT AUTO 1 % (0-6); Hematocrit 26.9 % (33.0-51.0); Hemoglobin 8.2 g/dL (11.5-16.0); IMMATURE GRAN ABSOLUTE AUTO 0.03 K/mm3 (0.00-0.10); IMMATURE GRAN PERCENT AUTO 0 % (0-1); LYMPHOCYTES ABSOLUTE AUTO 0.80 K/mm3 (0.84-5.20); LYMPHOCYTES PERCENT AUTO 12 % (21-46); MONOCYTES ABSOLUTE AUTO 0.66 K/mm3 (0.16-1.47); MONOCYTES PERCENT AUTO 10 % (4-13); Mean Corpuscular HGB Conc 30.5 g/dL (31.5-36.5); Mean Corpuscular Volume 98 fL (80-100); NEUTROPHILS ABSOLUTE AUTO 5.22 K/mm3 (1.96-9.15); NEUTROPHILS PERCENT AUTO 77 % (41-73); NRBC ABSOLUTE 0.00 K/mm3 (0.00-0.02); NRBC Auto 0.0 /100 WBC (0.0-0.2); Platelet Count 221 K/mm3 (150-400); RDW Coefficient Variation 15.9 % (11.7-14.2); RDW Standard Deviation 56.7 fL (35.1-46.3)
[2025-11-21 06:03] LABS: Alanine Aminotransfer (ALT/SGP 21.0 U/L (12-78); Albumin, Blood 2.7 g/dL (3.4-5.0); Albumin/Globulin Ratio 0.7 (0.8-1.8); Anion Gap 11.0 mmol/L (3-11); Aspartate Aminotrans (AST/SGOT 13.0 U/L (12-37); Bilirubin, Total 0.5 mg/dL (0.1-1.0); Blood Urea Nitrogen 61.0 mg/dL (8-24); CO2, Blood 29.0 mmol/L (21-32); Calcium, Blood 9.4 mg/dL (8.5-10.1); Chloride, Blood 100.0 mmol/L (98-108); Creatinine, Blood 4.38 mg/dL (0.40-1.00); Globulin, Blood 3.9 g/dL (2.2-4.0); Glucose, Blood 127.0 mg/dL (70-99); Magnesium, Blood 2.5 mg/dL (1.6-2.4); Phosphorus, Blood 4.5 mg/dL (2.5-4.9); Potassium, Blood 4.6 mmol/L (3.5-5.5); Sodium, Blood 135.0 mmol/L (136-145); Total Protein, Blood 6.6 g/dL (6.4-8.2)
--- NOTE | 2025-11-21 06:33 | NUR ---
SHIFT SUMMARY PT AMBULATING INDEPENDENTLY USING FWW IN ROOM AND IN HALLWAY. MEDICATED FOR RIGHT ARM PAIN X1 WITH OXYCODONE PER EMAR. POWERGLIDE FLUSHES WELL AND DRAWS BLOOD. DRESSING CHANGED TO ABDOMINAL WOUND PER ORDER- DRAINING SMALL AMOUNTS OF SEROSANG/PURULENT DRAINAGE. PT DENIED NAUSEA AND ABDOMINAL PAIN DURING THE NIGHT. STATES FORMED BM. PT SLEPT LONG INTERVALS DURING THE NIGHT.
--- NOTE | 2025-11-21 15:03 | NUR ---
HOSPITAL MEDICINE DIRECTOR NOTE: CALLED AND ATTEMPTED TO GIVE REPORT TO ESTUARDO SAAVEDRA BUT NO ANSWER. PAPERWORK GIVEN TO TRANSPORT TEAM, POWERGLIDE REMOVED, PT DRESSED AND IN WHEELCHAIR, PT GIVEN PERSONAL BELONGINGS.
== END 2025-11-21 14:55 | DRG 570 ==
LOC: ER 10:12 → MEDS 13:12 → ERHOLD 13:12 → MEDS 15:00 → ENPENDDIS 11-21 14:12 → MEDS 11-21 14:55
PROVIDERS: Emergency Medicine; Internal Medicine Nephrology; ADMIT Internal Medicine
PROC: 0JB80ZZ Excision of Abdomen Subcutaneous Tissue and Fascia, Open Approach (ICD-10-PCS; principal; 2025-11-18)
PROC: 3E03329 Introduction of Other Anti-infective into Peripheral Vein, Percutaneous Approach (ICD-10-PCS; 2025-11-18)
PROC: 5A1D70Z Performance of Urinary Filtration, Intermittent, Less than 6 Hours Per Day (ICD-10-PCS; 2025-11-18)
DX: L03.311 Cellulitis of abdominal wall (principal); N18.6 End stage renal disease; E87.1 Hypo-osmolality and hyponatremia; I12.0 Hypertensive chronic kidney disease with stage 5 chronic kidney disease or end stage renal disease; E11.52 Type 2 diabetes mellitus with diabetic peripheral angiopathy with gangrene; E11.22 Type 2 diabetes mellitus with diabetic chronic kidney disease; E11.649 Type 2 diabetes mellitus with hypoglycemia without coma; I25.10 Atherosclerotic heart disease of native coronary artery without angina pectoris; F17.210 Nicotine dependence, cigarettes, uncomplicated; J44.9 Chronic obstructive pulmonary disease, unspecified; D72.829 Elevated white blood cell count, unspecified; F32.9 Major depressive disorder, single episode, unspecified; E87.5 Hyperkalemia; E88.09 Other disorders of plasma-protein metabolism, not elsewhere classified; G89.4 Chronic pain syndrome; D63.1 Anemia in chronic kidney disease; R19.5 Other fecal abnormalities; Z99.2 Dependence on renal dialysis; Z79.4 Long term (current) use of insulin; Z79.2 Long term (current) use of antibiotics; Z79.899 Other long term (current) drug therapy; Z79.51 Long term (current) use of inhaled steroids; Z79.891 Long term (current) use of opiate analgesic; Z79.01 Long term (current) use of anticoagulants; Z88.8 Allergy status to other drugs, medicaments and biological substances; Z88.5 Allergy status to narcotic agent; Z28.21 Immunization not carried out because of patient refusal
CPT/HCPCS: 36415; 51701; 74019; 74150; 80053; 80069; 80202; 81001; 82947; 83605; 83690; 83735; 84100; 85014; 85018; 85025; 87070; 87075; 87077; 87186; 87205; 96374; 96376; 99285-25; A9270; G0378; J0690; J0696; J0881; J1644; J1815; J2405; J3373; J7050